=== PATIENT | male | born 1970 | race Caucasian/White ===

== ENCOUNTER 2020-03-26 11:47 | Inpatient (IN) ==
--- NOTE | 2020-03-26 12:28 | Emergency Department Note ---
Impression & Plan Hydronephrosis with renal and ureteral calculous obstruction, Hematuria, Acute left flank pain ED Provider Note NAME: MEGAN TRUONG AGE: 49 SEX: M : 1970 ARRIVES VIA: Walk-In INFORMANT: Patient, ED PROVIDER(S): Jonas Wright DO CHIEF COMPLAINT: Left flank pain HPI: The patient is a 49-year-old male who presented to the emergency department for an evaluation of left leg pain. The patient states he has left lower quad rant abdominal pain which did radiate to his left testicle as well as his left flank. The pain began yesterday. It became much worse earlier today. It was associated with nausea and vomiting when it was at its worst. The patient states the pain is worsened with any movement or palpation of the left lower quadrant. He has not seen his primary care physician for this pain. He was not seen previously for this pain. He did not take any medication for this pain. He denies having any fever. He denies any dysuria or frequency. He is noticed no hematuria. He has noticed some bowel issues with some constipation recently. He has been taking [id number] and natural medications for constipation. The patient states his pain is mild at this time. The patient states he has never had a colonoscopy. ROS: See above HPI for pertinent positives & negatives. A total of 10 systems reviewed and were otherwise negative. PAST MEDICAL HISTORY: See Below PAST SURGICAL HISTORY: See Below FAMILY HISTORY: See Below SOCIAL HISTORY: See Below HOME MEDICATIONS: See Below ALLERGIES: See Below VITALS: See Below PHYSICAL EXAMINATION: GENERAL: Patient is awake alert in no acute distress patient is resting comfortably and showing no signs of anxiety EYES: The conjunctivae are clear. The pupils are round and reactive. EARS, NOSE, MOUTH AND THROAT: The nose is without any evidence of any deformity. Mucous membranes are moist. Tongue is midline. NECK: The neck is nontender and supple. RESPIRATORY: Normal respiratory effort is noted there is no evidence of wheezing rhonchi or rales CARDIOVASCULAR: Regular rate and rhythm noted there no murmurs rubs or gallops normal S1 normal S2. GASTROINTESTINAL: The abdomen is soft and nondistended. There is left lower qu adrant tenderness to palpation but no guarding or rigidity. BACK: No midline tenderness was noted. There is left CVA tenderness to percussion but range of motion appears intact. MUSCULOSKELETAL/EXTREMITIES: There is no evidence of gross deformity full range of motion is noted in the hips and shoulders. SKIN: There is no obvious evidence of any rash. There are no petechiae, pallor or cyanosis noted. NEUROLOGIC: Patient is awake alert and oriented x3 strength is symmetric patellar reflexes are 2+ bilaterally MEDICAL DECISION MAKING: The patient is a 49-year-old male who presented to the emergency department for an evaluation of left-sided pain. The patient also had pain radiating to his left flank as well as his left lower quadrant. The patient did not have an acute surgical abdomen on physical exam. He had hematuria that was noted on urinalysis. CT abdomen and pelvis did show significantly obstructing left proximal ureteral calculus. I discussed the patient's laboratory and radiographic studies with him. He was treated with IV fluids. Given the size and location of the ureteral calculus I discussed his case with urology. They did recommend that we observe the patient in the hospital until stent could be placed. 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 I discussed the patient's condition with the on-call [facility] hospitalist group. They have agreed to evaluate the patient in the emergency department for further management and disposition. Triage Nursing notes reviewed. Prior medical records reviewed Vital Signs: reviewed and remarkable for elevated blood pressure Differential diagnosis: Renal colic, UTI, appendicitis, diverticulitis, mesenteric ischemia, aortic pathology, infections, inflammatory bowel disease, PUD, biliary pathology, as well as other pathologies. ER treatment provided: See below Diagnostics interpreted by me: ECG: none Cardiac Monitoring: An order was placed for continuous cardiac monitoring. The monitor shows a rate of 85 with sinus rhythm. Laboratory studies: As stated above and show below. Imaging studies: See below Consultation(s): 1336: I discussed this case with Carmen Lofton with urology. 1400: I discussed this case with Sangeeta who is on-call for the [facility] hospitalist group. They will evaluate the patient in the emergency department for further management and disposition. Past Med/Surg History Surgical History (Updated 03/26/20 @ 12:26 by Jonas Wright DO) History of splenectomy Social History Feels Safe at Home: Yes Smoking Status: Never smoker Allergies Allergies Allergy/AdvReac Type Severity Reaction Status Date / Time No Known Allergies Allergy Unverified 03/26/20 13:34 Home Meds Home Medications Medication Instructions Recorded Confirmed Gurvinder's Colon Pills 476mg Capsules 476 mg PO HS 03/26/20 03/26/20 Results & Data (ED) Vital Signs Vital Signs - 24 hr 03/26/20 12:02 03/26/20 12:37 03/26/20 12:38 Temperature 36.7 C Temperature Source Oral Pulse Rate 62 Pulse Rate [Apical] 86 Respiratory Rate 16 18 Respiratory Effort / Characteristics Non-Labored Spontaneous Non-Labored Spontaneous Respiratory Depth Normal Normal Blood Pressure 178/114 H Blood Pressure [Right Arm] 177/108 H Blood Pressure Mean 135 Blood Pressure Mean [Right Arm] 131 Blood Pressure Position Sitting Pulse Oximetry 96 98 99 Oxygen Delivery Method Room Air Room Air Room Air Sepsis Recent Fever Within 48 Hours No Sepsis Action Taken by Nursing No Action Required 03/26/20 13:39 Temperature Temperature Source Pulse Rate Pulse Rate [Apical] Respiratory Rate 18 Respiratory Effort / Characteristics Respiratory Depth Normal Blood Pressure Blood Pressure [Right Arm] 163/109 H Blood Pressure Mean Blood Pressure Mean [Right Arm] 127 Blood Pressure Position Pulse Oximetry 99 Oxygen Delivery Method Room Air Sepsis Recent Fever Within 48 Hours Sepsis Action Taken by Care Home Medications Current Medication List: was personally reviewed by me Laboratory Data Attestation: I reviewed the patient's lab results. Result diagrams: 03/26/20 12:30 03/26/20 12:30 Lab Results 03/26/20 03/26/20 03/26/20 Range/Units 12:30 12:30 12:40 WBC 14.65 H (4.8-10.8) K/uL RBC 5.38 (4.7-6.1) M/uL Hgb 16.1 (14.0-18.0) g/dL Hct 47.0 (42-52) % MCV 87.4 (80-100) fL MCH 29.9 (25-34) pg MCHC 34.3 (32-36) g/dL RDW Std Deviation 45.4 (36.4-46.3) fL RDW Coeff of Javier 14.1 (11.5-14.5) % Plt Count 521 H (130-400) K/uL MPV 9.5 (7.4-10.4) fL Immature Gran % (Auto) 0.2 % Neut % (Auto) 81.3 % Lymph % (Auto) 13.0 % [place] % (Auto) 4.6 % Eos % (Auto) 0.3 % Baso % (Auto) 0.6 % Immature Gran # (Auto) 0.03 H (0.00-0.02) K/uL Neut # (Auto) 11.91 H (1.4-6.5) K/uL Lymph # (Auto) 1.91 (1.2-3.4) K/uL [place] # (Auto) 0.67 H (0.11-0.59) K/uL Eos # (Auto) 0.04 (0-0.5) K/uL Baso # (Auto) 0.09 (0-0.2) K/uL Sodium 137 (136-145) mmol/L Potassium 3.6 (3.5-5.1) mmol/L Chloride 101 (98-107) mmol/L Carbon Dioxide 28 (21-32) mmol/L Anion Gap 8.0 (3-11) BUN 13 (7-18) mg/dl Creatinine 0.94 (0.6-1.4) mg/dl Est Cr Clr Drug Dosing 97.1 ml/min Est GFR ( Amer) 109.1 Est GFR (Non-Af Amer) 94.2 BUN/Creatinine Ratio 13.9 (10-20) Glucose 119 H (70-99) mg/dl Calcium 9.4 (8.5-10.1) mg/dl Total Bilirubin 0.5 (0.2-1) mg/dl AST 21 (15-37) U/L ALT 52 (12-78) U/L Alkaline Phosphatase 70 (45-117) U/L Total Protein 9.2 H (6.4-8.2) gm/dl Albumin 4.5 (3.4-5.0) gm/dl Globulin 4.7 H (2.5-4.0) gm/dl Albumin/Globulin Ratio 1.0 (0.9-2) Lipase 99 (73-393) U/L Urine Color Yellow Urine Appearance Cloudy A (Clear) Urine pH 7.5 (4.5-7.5) Ur Specific [place] 1.015 (1.000-1.030) Urine Protein Negative (Negative) Urine Glucose (UA) Negative (Negative) Urine Ketones Trace H (Negative) Urine Blood 3+ H (Negative) Urine Nitrite Negative (Negative) Urine Bilirubin Negative (Negative) Urine Urobilinogen Negative (Negative) Ur Leukocyte Esterase Negative (Negative) Urine WBC (Auto) 1-5 (0-5) /hpf Urine RBC (Auto) >30 H (0-4) /hpf U Hyaline Cast (Auto) 1-5 (0-5) /lpf U Epithel Cells (Auto) 5-10 H (0-5) /lpf Urine Bacteria (Auto) Negative (Negative) Administered Medications Ceftriaxone Sodium (Rocephin) 1,000 mg in 50 mls @ 100 mls/hr IV NOW STA Stop: 03/26/20 14:13 Last Admin: 03/26/20 13:55 Dose: 100 mls/hr Documented by: [id number] Discontinued Medications Sodium Chloride (Nss 1000ml) 1,000 mls @ 999 mls/hr IV .Q1H1M DALIA Stop: 03/26/20 13:30 Last Infusion: 03/26/20 13:50 Dose: 0 mls/hr Documented by: [id number] Admin: 03/26/20 12:37 Dose: 999 mls/hr Documented by: [id number] Tamsulosin HCl (Flomax) 0.4 mg PO NOW ONE Stop: 03/26/20 13:45 Last Admin: 03/26/20 13:55 Dose: 0.4 mg Documented by: [id number] Imaging Data Radiologist's Impression: CT OF THE ABDOMEN AND PELVIS WITHOUT CONTRAST CLINICAL HISTORY: left flank pain COMPARISON STUDY: No previous studies for comparison. TECHNIQUE: Axial images of the abdomen and pelvis were obtained without IV contrast. Images were reviewed in the axial, sagittal, and coronal planes. Automated exposure control was utilized for the study. A dose lowering technique was utilized adhering to the principles of ALARA. FINDINGS: Imaged portions of the lower chest demonstrate a tubular branching o pacity within the right lower lobe on axial image 16 of 511. There is apparent narrowing of the associated bronchus on axial image 4. A 5 mm lingular nodule on image 20 is noted. Note is made of mild to moderate left hydronephrosis due to a 6 mm x 4 mm proximal left ureteral calculus. There is associated periureteral and perinephric infiltration. The 2 mm left renal calculus is noted. Fatty infiltration of the liver is noted. The spleen is surgically absent. Unenhanced images of the adrenal glands and pancreas are unremarkable. There is no evidence for a bowel obstruction. The appendix is normal. There is no lymphadenopathy. There are no suspicious osseous lesions. Caliber of small and large bowel are normal. IMPRESSION: 1. 6 mm x 4 mm proximal left ureteral calculus which results in mild to moderate hydronephrosis. 2. 2 mm left renal calculus. 3. 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 A follow-up chest CT in 6 months to ensure stability is recommended. 4. 5 mm lingular nodule which can be assessed on follow-up chest CT. 5. Fatty infiltration of the liver. ACT 112: Negative or not required by law. Electronically signed by: Didier Lane M.D. 03/26/2020 1:23 PM Dictated: 03/26/20 1313 Transcribed: 03/26/20 1313 Blood Pressure Blood Pressure Findings: Elevated blood pressure Blood Pressure Disposition: further management by hospitalist Discharge Plan Visit Data Chief Complaint: Abdominal Pain Stated Complaint: PAIN IN STOMACH - VOMITING ED Provider: Jonas Wright Discharge Problem: Hydronephrosis with renal and ureteral calculous obstruction, Hematuria, Acute left flank pain Patient Disposition: Being Evaluated by Hospitalist Condition: Good Forms Stand Alone Forms: [email or web address] Prescriptions Prescriptions: No Action Gurvinder's Colon Pills 476mg Capsules 476 mg PO HS RF: 0 Referrals Referrals: PCP,NO [Primary Care Provider] - Discharge Problem: Hematuria Qualifiers: Hematuria type: other microscopic Qualified Code(s): R31.29 - Other microscopic hematuria
[2020-03-26] MEDS ORDERED: SODIUM CHLORIDE 0.9% 1000ML 1,000 ML IV SCH (12:30)
[2020-03-26 12:47] LABS: Basophils # (auto) 0.09 K/uL (0-0.2); Basophils % (auto) 0.6 %; Eosinophils # (auto) 0.04 K/uL (0-0.5); Eosinophils % (auto) 0.3 %; Hemoglobin 16.1 g/dL (14.0-18.0); Immature Granulocytes # (auto) 0.03 K/uL (0.00-0.02); Immature Granulocytes % (auto) 0.2 %; Lymphocytes # (auto) 1.91 K/uL (1.2-3.4); Mean Corpuscular Hemoglobin 29.9 pg (25-34); Mean Corpuscular Hgb Conc 34.3 g/dL (32-36); Mean Corpuscular Volume 87.4 fL (80-100); Mean Platelet Volume 9.5 fL (7.4-10.4); Monocytes # (auto) 0.67 K/uL (0.11-0.59); Monocytes % (auto) 4.6 %; Neutrophils # (auto) 11.91 K/uL (1.4-6.5); Neutrophils % (auto) 81.3 %; Platelet Count 521 K/uL (130-400); RDW Coefficient of Variation 14.1 % (11.5-14.5); RDW Standard Deviation 45.4 fL (36.4-46.3); Red Blood Count 5.38 M/uL (4.7-6.1); White Blood Count 14.65 K/uL (4.8-10.8)
[2020-03-26 13:02] LABS: Appearance Urine Cloudy (Clear); Bacteria Urine Automated Negative (Negative); Bilirubin Urine Negative (Negative); Blood Urine 3+ (Negative); Color Urine Yellow; Glucose Urine UA Negative (Negative); Ketones Urine Trace (Negative); Leukocyte Esterase Urine Negative (Negative); Nitrite Urine Negative (Negative); Protein Urine Negative (Negative); RBC Urine Automated >30 /hpf (0-4); Specific Gravity Urine 1.015 (1.000-1.030); Urobilinogen Urine Negative (Negative); pH Urine 7.5 (4.5-7.5)
[2020-03-26 13:05] LABS: Albumin Level 4.5 gm/dl (3.4-5.0); BUN Creatinine Ratio 13.9 (10-20); Calcium 9.4 mg/dl (8.5-10.1); Creatinine Clr Calc Pharmacy 97.1 ml/min; Est GFR (African American) 109.1; Est GFR (Non-African American) 94.2; Potassium 3.6 mmol/L (3.5-5.1)
[2020-03-26 13:07] LABS: Bilirubin,Total 0.5 mg/dl (0.2-1); Globulin 4.7 gm/dl (2.5-4.0); Total Protein 9.2 gm/dl (6.4-8.2)
--- NOTE | 2020-03-26 13:24 | CT Scan Report ---
CT OF THE ABDOMEN AND PELVIS WITHOUT CONTRAST CLINICAL HISTORY: left flank pain COMPARISON STUDY: No previous studies for comparison. TECHNIQUE: Axial images of the abdomen and pelvis were obtained without IV contrast. Images were revi ewed in the axial, sagittal, and coronal planes. Automated exposure control was utilized for the lilian dy. A dose lowering technique was utilized adhering to the principles of ALARA. FINDINGS: Imaged portions of the lower chest demonstrate a tubular branching opacity within the right lower lobe on axial image 16 of 511. There is apparent narrowing of the associated bronchus on axial image 4. A 5 mm lingular nodule on image 20 is noted. Note is made of mild to moderate left hydronep hrosis due to a 6 mm x 4 mm proximal left ureteral calculus. There is associated periureteral and per inephric infiltration. The 2 mm left renal calculus is noted. Fatty infiltration of the liver is note d. The spleen is surgically absent. Unenhanced images of the adrenal glands and pancreas are unremark able. There is no evidence for a bowel obstruction. The appendix is normal. There is no lymphadenopat hy. There are no suspicious osseous lesions. Caliber of small and large bowel are normal. IMPRESSION: 1. 6 mm x 4 mm proximal left ureteral calculus which results in mild to moderate hydronephrosis. 2. 2 mm left renal calculus. 3. Tubular branching opacity within the right lower lobe which favors a mucoid impacted bronchus, pos sibly due to bronchial atresia. A follow-up chest CT in 6 months to ensure stability is recommended. 4. 5 mm lingular nodule which can be assessed on follow-up chest CT. 5. Fatty infiltration of the liver. ACT 112: Negative or not required by law. Electronically signed by: Didier Lane M.D. 03/26/2020 1:23 PM
[2020-03-26] MEDS ORDERED: TAMSULOSIN HCL 0.4 MG CAP PO ONE (13:44)
[2020-03-26] MEDS ORDERED: cefTRIAXone SODIUM 1,000 MG/50 ML BAG IV STA (13:44)
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
[2020-03-26] MEDS ORDERED: MoRPHine SULFATE 4 MG/ML 1 ML CARP\\VIAL IV PRN (16:51)
[2020-03-26] MEDS ORDERED: MoRPHine SULFATE 2 MG/ML CARP IV PRN (16:51)
[2020-03-26] MEDS ORDERED: ACETAMINOPHEN 325 MG TAB PO PRN (16:51)
[2020-03-26] MEDS: cefTRIAXone SODIUM 1,000 MG in DEXTROSE 5% 50 ML IV SCH (16:56)
[2020-03-26] MEDS: SODIUM CHLORIDE 0.9% 1000ML 1,000 ML IV SCH ×2 (17:04→22:06)
[2020-03-27] MEDS: SODIUM CHLORIDE 0.9% 1000ML 1,000 ML IV SCH ×3 (02:54→14:09)
[2020-03-27 06:04] LABS: Hematocrit (blood only) 41.8 % (42-52); Hemoglobin 14.2 g/dL (14.0-18.0); Mean Corpuscular Hemoglobin 29.5 pg (25-34); Mean Corpuscular Volume 86.7 fL (80-100); Mean Platelet Volume 9.4 fL (7.4-10.4); Platelet Count 445 K/uL (130-400); RDW Standard Deviation 44.3 fL (36.4-46.3); Red Blood Count 4.82 M/uL (4.7-6.1); White Blood Count 10.36 K/uL (4.8-10.8)
[2020-03-27 06:40] LABS: BUN Creatinine Ratio 13.9 (10-20); Calcium 8.4 mg/dl (8.5-10.1); Creatinine Clr Calc Pharmacy 138.3 ml/min; Est GFR (African American) 130.7; Est GFR (Non-African American) 112.7; Potassium 3.5 mmol/L (3.5-5.1)
--- NOTE | 2020-03-27 07:45 | Urology Consultation ---
Date of Consultation March 27, 2020 Assessment & Plan (1) Hydronephrosis with renal and ureteral calculous obstruction: Risks and benefits discussed at length for procedure. These include bleeding, infection, injury to surrounding tissues or organs, and risks associated with anesthesia. Patient states understanding and agrees to proceed. Will sign consent and schedule. Will set up for Cystoscopy with left stent placement. Plan for 1-2 weeks of antibiotic therapy and then stone treatment. Patient with history of splenectomy. Discussed concerns if develops sepsis/bacteremia. Discussed risks with stone and obstruction. NPO. (2) Hematuria: History of Present Illness Attending Physician: Damian Bhatia History of Present Illness New consultation for patient with stone, discomfort, obstruction, and ill feelings. Patient developed sudden onset of pain into flank going down and radiating into groin and back in waves comes and goes. Can be severe at times. Discussed and reviewed patient's family history for any history of stone disease. Also, discussed patient's medical surgery history especially related to any history of urinary issues or stone disease. Patient was admitted and is undergoing observation. Allergies Allergy/AdvReac Type Severity Reaction Status Date / Time No Known Allergies Allergy Unverified 03/26/20 13:34 Home Medications Home Medications Medication Instructions Recorded Confirmed Type Gurvinder's Colon Pills 476mg Capsules 476 mg PO HS 03/26/20 03/26/20 History Patient History Surgical History History of splenectomy Family History Other Hypertension Social History Preferred Language: Lithuanian Communication Ability: Effective Order Worker Required: No Beliefs That Will Affect Care: None Current Living Situation: Spouse Other Information That Helps Us Care for You: No Feels Safe at Home: Yes Safety Concerns: Feels Safe At This Time Smoking Status: Former smoker Tobacco Type: cigarettes ; Do You Dip or Chew Tobacco: No ; Smoking End Date: smoked when he was young ; Second Hand Exposure: No ; Tobacco Cessation Education Requested by Patient: No Hx Alcohol Use: No Hx Substance Use: No Review of Systems Review of Systems: All systems reviewed & are unremarkable except as noted in HPI & below Physical Exam Physical Exam: General: Alert and oriented x 3 in no acute distress. Patient is well nourished and well kept. HEENT: Normocephalic Atraumatic. Inspection normal. Cranial Nerves 2-12 Grossly intact. Nares are clear. Neck is supple. Normal inspection of face. Normal inspection of neck. Neurologic: No deficits on inspection. Baseline for motor function and sensory. Psychologic: Normal affect. Respiratory: Nonlabored. No use of accessory muscles. No tachypnea or dyspnea. Cardiovascular: No tachycardia Skin: Kipp and Dry. No rashes or visible lesions. Extremities: Moving without issues. No motor deficits on inspection Lymphatics: No edema Abdomen: Soft Non-distended. No acites. No rebound or guarding. Results & Data Vital Signs (Past 12 Hours) Vital Signs Temp Pulse Resp BP Pulse Ox 03/27/20 07:35 36.6 C 74 18 157/94 H 97 03/26/20 23:30 36.7 C 70 20 157/88 H 98 PG Care Time/CCT Total # of Minutes Spent Total Time Spent with Patient: Total time spent is greater than 50% in coordination of care (as documented) at patient's floor/unit and/or counseling patient: Coding Level of Care Code 08100 Inpt Consult Level 5 Diagnoses Hydronephrosis with renal and ureteral calculous obstruction N13.2 Hematuria R31.29 Hematuria type: other microscopic (1) Hematuria Hematuria type: other microscopic Qualified Code(s): R31.29 - Other microscopic hematuria
--- NOTE | 2020-03-27 08:25 | Anesthesiology Consultation ---
Date of Service March 27, 2020 Assessment & Plan (1) Encounter for pre-operative examination: Chart Review Chart Review: Acceptable Risk for Surgery and Patient NOT seen in Pre Admission Testing Consults Requested none History Surgery Operation Date: 03/27/20 09:30 Proposed Procedures p Cystoscopy, Left Stent Insertion - Fawad Astorga DO Height/Weight Height: 5 ft 10 in Weight: 85.1 kg Allergies Allergy/AdvReac Type Severity Reaction Status Date / Time No Known Allergies Allergy Unverified 03/26/20 13:34 Medications Home Medications Medication Instructions Recorded Confirmed Last Taken Gurvinder's Colon Pills 476mg Capsules 476 mg PO HS 03/26/20 03/26/20 03/25/20 Active Medications Generic Name Dose Route Start Last Admin Trade Name Freq PRN Reason Stop Dose Admin Ceftriaxone Sodium 1,000 mg/ 50 mls @ 100 mls/hr 03/26/20 14:30 03/26/20 16:56 Dextrose IV 04/05/20 14:29 Not Given Q24H DALIA Protocol Sodium Chloride 1,000 mls @ 200 mls/hr 03/26/20 16:51 03/27/20 08:08 Nss 1000ml IV 04/25/20 16:50 Infused .Q5H DALIA Infusion Past Medical History Medical History Fatty liver Hydronephrosis with renal and ureteral calculous obstruction (Inactive) Pulmonary nodule Past Family History Family History Other Hypertension Past Surgical History Surgical History History of splenectomy Social History Smoking Status: Former smoker tobacco type: cigarettes Do You Dip or Chew Tobacco: No Smoking End Date: smoked when he was young Hx Alcohol Use: No Hx Substance Use: No substance use type: does not use Physical Exam Vital Signs Last Vital Signs Temp 36.6 C 03/27/20 07:35 Pulse 74 03/27/20 07:35 Resp 18 03/27/20 07:35 BP 157/94 H 03/27/20 07:35 Pulse Ox 97 03/27/20 07:35 Testing Laboratory Results 03/27/20 05:47 03/27/20 05:47 Urine Color Yellow 03/26/20 12:40 Urine Appearance Cloudy (Clear) A 03/26/20 12:40 Urine pH 7.5 (4.5-7.5) 03/26/20 12:40 Ur Specific [place] 1.015 (1.000-1.030) 03/26/20 12:40 Urine Protein Negative (Negative) 03/26/20 12:40 Urine Glucose (UA) Negative (Negative) 03/26/20 12:40 Urine Ketones Trace (Negative) H 03/26/20 12:40 Urine Nitrite Negative (Negative) 03/26/20 12:40 Ur Leukocyte Esterase Negative (Negative) 03/26/20 12:40 Urine WBC (Auto) 1-5 /hpf (0-5) 03/26/20 12:40 Urine RBC (Auto) >30 /hpf (0-4) H 03/26/20 12:40 U Hyaline Cast (Auto) 1-5 /lpf (0-5) 03/26/20 12:40 U Epithel Cells (Auto) 5-10 /lpf (0-5) H 03/26/20 12:40 Urine Bacteria (Auto) Negative (Negative) 03/26/20 12:[address] OF THE ABDOMEN AND PELVIS WITHOUT CONTRAST CLINICAL HISTORY: left flank pain COMPARISON STUDY: No previous studies for comparison. TECHNIQUE: Axial images of the abdomen and pelvis were obtained without IV contrast. Images were reviewed in the axial, sagittal, and coronal planes. Automated exposure control was utilized for the study. A dose lowering technique was utilized adhering to the principles of ALARA. FINDINGS: Imaged portions of the lower chest demonstrate a tubular branching opacity within the right lower lobe on axial image 16 of 511. There is apparent narrowing of the associated bronchus on axial image 4. A 5 mm lingular nodule on image 20 is noted. Note is made of mild to moderate left hydronephrosis due to a 6 mm x 4 mm proximal left ureteral calculus. There is associated periureteral and perinephric infiltration. The 2 mm left renal calculus is noted. Fatty infiltration of the liver is noted. The spleen is surgically absent. Unenhanced images of the adrenal glands and pancreas are unremarkable. There is no evidence for a bowel obstruction. The appendix is normal. There is no lymphadenopathy. There are no suspicious osseous lesions. Caliber of small and large bowel are normal. IMPRESSION: 1. 6 mm x 4 mm proximal left ureteral calculus which results in mild to moderate hydronephrosis. 2. 2 mm left renal calculus. 3. 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 A follow-up chest CT in 6 months to ensure stability is recommended. 4. 5 mm lingular nodule which can be assessed on follow-up chest CT. 5. Fatty infiltration of the liver. ACT 112: Negative or not required by law. Electronically signed by: Didier Lane M.D. 03/26/2020 1:23 PM Dictated: 03/26/20 1313 Transcribed: 03/26/20 1313
[2020-03-27] MEDS ORDERED: MEPERIDINE HCL 25 MG/ML CARP/VIAL IV PRN (08:33)
[2020-03-27] MEDS ORDERED: ATROPINE SULFATE 0.1 MG/ML 10ML SYR IV PRN (08:33)
[2020-03-27] MEDS ORDERED: LABETALOL HCL IV 5 MG/ML 20ML IV PRN (08:33)
[2020-03-27] MEDS ORDERED: HYDROmorphone INJ 1 MG/ML SYRINGE IV PRN (08:33)
[2020-03-27] MEDS ORDERED: fentaNYL citrate 100 MCG/2 ML VIAL IV PRN (08:33)
[2020-03-27] MEDS ORDERED: ePHEDrine sulfate 50 MG/ML AMP IV PRN (08:33)
[2020-03-27] MEDS ORDERED: ONDANSETRON INJ 2 MG/ML 2 ML VIAL IV PRN (08:33)
[2020-03-27] MEDS ORDERED: PHENYLEPHRINE 100MCG/ML 5ML SYR IV PRN (08:33)
[2020-03-27] MEDS ORDERED: IOTHALAMATE MEGLUMINE II 17.2% 250 ML VIAL ONE (09:03)
[2020-03-27] MEDS ORDERED: MIDAZOLAM HCL 1 MG/ML 2ML VIAL ONE (09:17)
[2020-03-27] MEDS ORDERED: fentaNYL citrate 100 MCG/2 ML VIAL ONE (09:17)
--- NOTE | 2020-03-27 09:36 | Operative Report ---
PG Post Operative Report Pre & Post Diagnosis Operation Date: 03/27/20 09:30 Pre-Op Diagnosis: L URETERAL STONE,HYDRONEPHROSIS Post-Op Diagnosis: L URETERAL STONE,HYDRONEPHROSIS I identified the patient and participated in the time-out.: Yes Procedure Operation Date: 03/27/20 09:30 Actual Procedures p Cystoscopy, Left Stent Insertion with retrograde pyelogram(Left) - Fawad Astorga DO Surgeon Fawad Astorga, II, DO [employer] None Estimated Blood Loss 1 Findings Consistent with Post-Op Diagnosis Stent placed in good position. 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 Specimens None Drains 6 Fr Multilength Anesthesia Type MAC Complications none Disposition Disposition: Recovery Room Indications Patient with obstruction. Risks and benefits discussed at length. Description of Procedure Patient was consented and brought back to the operating room. Patient was placed under anesthesia in the supine position and moved to the dorsal lithotomy position. Patient was prepped and draped in the regular sterile fashion. A time out was completed. A 30degree Cystoscope was placed into the bladder and the entire bladder was examined. The UO's were identified. The UO was cannulized with a catheter and a retrograde pyelogram was completed. A wire was then placed. With the wire in place, a 6 Fr Double J stent was placed. It was confirmed with fluoroscopy. With the stent in place, the bladder was emptied. The scope was removed. The patient was cleaned, aroused from anesthesia, and transferred to the pacu in stable condition having tolerated the procedure well with no complications. I was present and participated in all aspects of the procedure. The patient will be monitored in the PACU until transferred. I attest to the content of the Intraoperative Record and any orders documented therein. Any exceptions are noted below.
--- NOTE | 2020-03-27 10:04 | Anesthesiology Progress Note ---
Date of Service March 27, 2020 Anesthesia Post Procedure Vital Signs Vital Signs: Temp Pulse Pulse Pulse Resp BP BP 03/27/20 09:50 37 C 93 H 15 03/27/20 09:40 36.8 C 97 H 16 03/27/20 08:16 37.1 C 82 18 155/90 H 03/27/20 07:35 36.6 C 74 18 03/26/20 23:30 36.7 C 70 20 03/26/20 15:52 36.6 C 79 16 151/97 H 03/26/20 13:39 18 03/26/20 12:38 86 18 03/26/20 12:37 03/26/20 12:02 36.7 C 62 16 178/114 H BP Pulse Ox 03/27/20 09:50 158/86 H 97 03/27/20 09:40 157/87 H 96 03/27/20 08:16 97 03/27/20 07:35 157/94 H 97 03/26/20 23:30 157/88 H 98 03/26/20 15:52 98 03/26/20 13:39 163/109 H 99 03/26/20 12:38 177/108 H 99 03/26/20 12:37 98 03/26/20 12:02 96 Pain Intensity Left Abdomen: Pain Intensity: 2 Transfer of Care Handoff Completed per policy Notes Mental Status: alert / awake / arousable Patient Amnestic to Procedure: Yes Nausea / Vomiting: adequately controlled Pain: adequately controlled Airway Patency, RR, SpO2: stable & adequate BP & HR: stable & adequate Hydration State: stable & adequate Anesthetic Complications: no major complications apparent and Pt Satisfied with anesthetic care
[2020-03-27] MEDS: TAMSULOSIN HCL 0.4 MG CAP PO SCH (10:16)
[2020-03-27] MEDS ORDERED: PHENAZOPYRIDINE HCL 200 MG TAB PO STA (12:06)
[2020-03-27] MEDS ORDERED: OXYBUTYNIN CHLORIDE 5 MG TAB PO STA (12:06)
--- NOTE | 2020-03-27 12:08 | Fluoroscopy Report ---
FL retrograde includes kub HISTORY: LEFT SIDE RETROGRADE AND STENT PLACEMENT FLUOROSCOPY TIME: 21 seconds FINDINGS: 2 fluoroscopic spot images were submitted for review. Retrograde opacification of the left renal collecting system with placement of a left ureteral stent. This appears in good position. IMPRESSION: Fluoroscopy provided for left ureteral stent placement which appears in good position.. ACT 112: Negative or not required by law. Electronically signed by: Jeffrey Kohli M.D. 03/27/2020 12:06 PM
[2020-03-27] MEDS: cefTRIAXone SODIUM 1,000 MG in DEXTROSE 5% 50 ML IV SCH (14:27)
[2020-03-27] MEDS: ONDANSETRON INJ 2 MG/ML 2 ML VIAL IV PRN (15:11)
[2020-03-27] MEDS ORDERED: PHENAZOPYRIDINE HCL 100 MG TAB PO PRN (18:16)
[2020-03-27] MEDS ORDERED: PROMETHAZINE HCL 12.5 MG in SODIUM CHLORIDE 0.9% 50 ML IV PRN (18:16)
[2020-03-27] MEDS ORDERED: SIMETHICONE 80 MG CHEW PO PRN (18:16)
[2020-03-27] MEDS ORDERED: OXYBUTYNIN CHLORIDE 5 MG TAB PO PRN (18:16)
[2020-03-27] MEDS: D5W AND NSS 1,000 ML IV SCH (19:12)
--- NOTE | 2020-03-27 19:41 | XRay Report ---
KUB HISTORY: Acute nausea with generalized abdominal pain persistent abd discomfort, nausea; eval stool, etc COMPARISON: CT abdomen pelvis 03/26/2020 FINDINGS: The bowel gas pattern is non-obstructive. Surgical clips project over the abdominal left up per quadrant. There is no organomegaly. A left ureteral stent is noted which appears to be in satisf actory positioning. There is a 5 mm radiodensity which projects over the inferior pole left kidney, n ot definitively seen on comparison CT abdomen and pelvis. The previously noted 6 x 5 mm calculus of t he proximal left ureter is not definitively seen. No pneumoperitoneum or pneumatosis. No fracture. IMPRESSION: 1. Satisfactory positioning of the left ureteral stent. No definite ureteral calculus identified. 2. 5 mm density of the abdominal left upper quadrant is suggestive of an inferior pole calculus. ACT 112: Negative or not required by law. The above report was generated using voice recognition software. It may contain grammatical, syntax o r spelling errors. Electronically signed by: Maurice Castellanos M.D. 03/27/2020 7:40 PM
--- NOTE | 2020-03-27 22:46 | Hospitalist Progress Note ---
Date of Service March 27, 2020 Assessment & Plan (1) Hydronephrosis with renal and ureteral calculous obstruction: 6mm ureteral stone on left s/p cystoscopy with ureteral stent placement by Dr Bueno today following the procedure the patient felt very poorly with what sounds like stent pain, bladder spasm and some dysuria ditropan 5mg BID prn pyridium 100mg TID prn flomax 0.4mg daily pain meds prn restart IV fluids due to poor appetite and nausea obtain KUB x-ray to r/o concomitant constipation, other processes cont IV antibiotics downgrade diet to clears BMP remains stable (2) Pulmonary nodule: CT with tubular branching opacity within the right lower lobe which favors a mucoid impacted bronchus, 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 follow-up chest CT in 6 months recommended. 5 mm lingular nodule - f/u 6 months. (3) Fatty liver: As seen on CT, recommend diet modification (4) Elevated blood-pressure reading without diagnosis of hypertension: no h/o HTN BPs may have been high 2nd to pain follow recommended he establish care with a new PCP (5) DVT prophylaxis: SCDs ambulatoin hopefully home on 03/28 if GI/ symptoms are controlled Admission and Anticipated Discharge Date Admission Date: March 26, 2020 Subjective saw patient twice today - both times post-cysto following the cysto he felt poorly - "gassy", bloated, nauseous, left flank pain, suprapubic pain, mild dysuria tried having a bowel movement - no stool, but passed gas - did not help symptoms gave pyridium and ditropan - several hours later told me they didn't help any of his symptoms ate lunch and dinner w/o incident but still having considerable abdominal pain Review of Systems Constitutional: no fever, no chills and no anorexia Respiratory: no dyspnea Cardiovascular: no chest pain and no dyspnea on exertion Gastrointestinal: as per Subjective / HPI and + bloating Genitourinary: no hematuria Physical Exam Constitutional: well developed and well nourished; no acute distress and no altered mental status ENMT: external ear and nose normal, oropharynx normal Respiratory: normal respiratory effort, lungs clear to auscultation Cardiovascular: Rate/Rhythm: regular rate and regular rhythm Heart Sounds: normal S1 and normal S2; no murmur Vessels: posterior tibial pulses present and dorsalis pedis pulses present; no JVD Extremities: no edema Gastrointestinal (Abdomen): Inspection/Auscultation: + abdomen distended (mild) and normal bowel sounds Percussion/Palpation: + abdomen tender (suprapubic ); no guarding, + abdomen not soft and no hepatosplenomegaly Psychiatric: A+Ox3, euthymic affect Results & Data Results & Data ([facility]) Vital Signs (Past 12 Hours) Vital Signs Temp Pulse Resp BP Pulse Ox 03/27/20 15:14 36.6 C 72 18 135/83 97 03/27/20 11:21 36.5 C 72 18 138/80 97 Laboratory Results Laboratory Results - last 24 hr 03/27/20 03/27/20 05:47 05:47 WBC 10.36 RBC 4.82 Hgb 14.2 Hct 41.8 L MCV 86.7 MCH 29.5 MCHC 34.0 RDW Std Deviation 44.3 RDW Coeff of Javier 14.0 Plt Count 445 H MPV 9.4 Sodium 138 Potassium 3.5 Chloride 107 Carbon Dioxide 23 Anion Gap 8.0 BUN 9 Creatinine 0.66 Est Cr Clr Drug Dosing 138.3 Est GFR ( Amer) 130.7 Est GFR (Non-Af Amer) 112.7 BUN/Creatinine Ratio 13.9 Glucose 93 Calcium 8.4 L PG Care Time/CCT Total # of Minutes Spent Total Time Spent with Patient: Total time spent is greater than 50% in coordin ation of care (as documented) at patient's floor/unit and/or counseling patient: Coding Level of Care Code 61063 Subseq Hosp Care Lvl 2 Diagnoses Hydronephrosis with renal and ureteral calculous obstruction N13.2 Pulmonary nodule R91.1 Fatty liver K76.0 Elevated blood-pressure reading without diagnosis of hypertension R03.0 DVT prophylaxis Z29.9
[2020-03-28 05:47] LABS: Hematocrit (blood only) 39.4 % (42-52); Hemoglobin 13.4 g/dL (14.0-18.0); Mean Corpuscular Hemoglobin 29.5 pg (25-34); Mean Corpuscular Volume 86.8 fL (80-100); Mean Platelet Volume 9.7 fL (7.4-10.4); Platelet Count 450 K/uL (130-400); RDW Coefficient of Variation 14.1 % (11.5-14.5); RDW Standard Deviation 44.6 fL (36.4-46.3); Red Blood Count 4.54 M/uL (4.7-6.1); White Blood Count 12.03 K/uL (4.8-10.8)
[2020-03-28] MEDS: D5W AND NSS 1,000 ML IV SCH (06:24)
[2020-03-28] MEDS: ONDANSETRON INJ 2 MG/ML 2 ML VIAL IV PRN (08:09)
[2020-03-28] MEDS: TAMSULOSIN HCL 0.4 MG CAP PO SCH (10:01)
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
== END 2020-03-28 15:13 | disposition home or self-care (01) | DRG 661 ==
LOC: ED 11:47 → SUATTDRO 14:15 → 3N 14:15